=== PATIENT | male | born 1935 | race Caucasian/White ===

== ENCOUNTER → 2016-12-01 | Outpatient (CLI) | payer OTHER ==
[~2016-12-01] MED LIST: CHOLESTEROL MED; COUM4TAB PO; COUM6TAB PO; TAMS5CAP PO
[2016-12-01 09:36] LABS: BLOOD GAS BASE EXCESS -1.7 mmol/L (-2-2); BLOOD GAS CARBOXYHEMOGLOBIN 1.5 % (0-4); BLOOD GAS HCO3 22 mmol/L (22-26); BLOOD GAS O2 HGB SATURATION 94 % (90-100); BLOOD GAS OXYGEN CONTENT 18.9 Vol % (12.0-20.0); BLOOD GAS PCO2 35 mmHg (38-42); BLOOD GAS PO2 82 mmHg (61-120); BLOOD GAS TOTAL HGB 14.3 G/DL (12.0-16.0); CRITICAL VALUE NO; DRAW SITE RT RADIAL; FIO2 21 %; NUMBER OF ARTERIAL PUNCTURES 1; STAT NO; TEMP CORR TO 98.6; ULNAR PULSE PRESENT
--- NOTE | 2016-12-05 09:31 | RSPPFT ---
DATE OF PROCEDURE: 12/01/16 COMMENTS: Spirometry shows FVC of 3.4 at 81% of predicted, FEV1 of 1.5 at 58%, FEV1/FVC ratio is decreased. Flow is decreased at FEF 25, FEF 50, FEF 75 and FEF 25-75. There is no significant response after bronchodilator treatment. Lung volumes show residual volume is increased. TLC is increased. Diffusion capacity is severely decreased. Flow volume loop indicates an obstructive pattern. Room air arterial blood gases show pH of 7.42, PCO2 of 35, PO2 of 82, BiCarb of 22 and O2 Saturation at 94%. IMPRESSION: 1. Moderately severe obstructive lung disease. 2. No response after bronchodilator treatment. 3. Lung volumes show hyperinflation and air trapping. 4. Severe loss in diffusion capacity. 5. Blood gases show normal oxygenation on room air.
== END ==
LOC: HRSP 08:36
PROVIDERS: ATTEND Specialist
DX: J44.9 Chronic obstructive pulmonary disease, unspecified (principal)
CPT/HCPCS: 36600; 82805; 94060; 94726; 94729

== ENCOUNTER 2017-11-07 20:41 | Inpatient (IN) | payer OTHER, MEDICARE ==
[2017-11-07] VITALS (7 sets, daily range): BP systolic 130–147; BP diastolic 70–107; PULSE 102–112; RESP 24–30; TEMP 97.7–99.1; O2SAT 92–94
[~2017-11-07] VITALS: Ht 175.3 cm; Wt 88.6 kg
--- NOTE | 2017-11-07 20:55 | PD ---
HPI Chief Complaint: Respiratory Symptoms Time Seen by Provider: 20:46 Travel History International Travel<30 days: No Contact w/Intl Traveler<30days: No Traveled to known affect area: No History of Present Illness HPI 82-year-old male complaining of right-sided chest pain shortness of breath. Patient states that he fell 2 days ago. Patient states that he struck the right side of his head. Patient denies loss of consciousness. Patient denies any headache or neck pain. Patient denies any visual change. Patient complains of persistent sharp pain localized the right chest wall. Patient denies any pain radiation. Patient states that the pain is worse with deep breathing. Patient denies abdominal pain. Patient denies any focal weakness or numbness of the extremity. Patient denies any extremity injury. Patient has history of mitral valve replacement, on Coumadin. Patient has history of COPD. Patient has history hypertension. PFSH Past Medical History Hx Anticoagulant Therapy: Yes Cancer: Yes (skin CA removed) Cardiovascular Problems: Yes High Cholesterol: Yes Chemotherapy: No Congestive Heart Failure: Yes (AFIB) COPD: Yes Coronary Artery Disease: Yes Diabetes: No Diminished Hearing: Yes (HEARING AIDS) Endocrine: No Genitourinary: No Hypertension: Yes Immune Disorder: No Musculoskeletal: No Neurologic: No Psychiatric: No Reproductive: No Respiratory: Yes (COPD, EMPHYSEMA) Radiation Therapy: No Past Surgical History Abdominal Surgery: Yes (DOUBLE HERNIA) Cardiac Surgery: Yes (CABG, mitral valve) Coronary Artery Bypass Graft: Yes Other Surgery: Yes Social History Alcohol Use: Yes (1/NIGHT) Tobacco Use: No Substance Use: No Allergies-Medications (Allergen,Severity, Reaction): Coded Allergies: propoxyphene (Unverified Allergy, Unknown, HEADACHE,VOMITING, 02/21/17) Reported Meds & Prescriptions Reported Meds & Active Scripts Active Reported Turmeric (Turmeric (Curcuma Longa)) 450 Mg-50 Mg Cap Super B Complex (Vitamin B Complex Vit C No.4) 150 Mg Tablet Folic Acid 0.4 Mg Tab 400 Mcg PO DAILY D3-2000 (Cholecalciferol (Vitamin D3)) 2,000 Unit Capsule Move Free Agistics Ad (Nmsxgnmfuug-Spsowhcxmjz-Giwclx) 750 Mg-100 Mg-1.65 Mg -108 Mg Tab Proventil Hfa 6.7 GM Inh (Albuterol Sulfate) 90 Mcg/Act Aer 2 Puff INH Q4-6H PRN Spiriva Handihaler (Tiotropium Inh) 18 Mcg Cap 18 Mcg INH DAILY 1 capsule = 18 mcg Hydralazine HCl 25 Mg Tablet 25 Mg PO TID Lisinopril 40 Mg Tab 40 Mg PO DAILY Atorvastatin (Atorvastatin Calcium) 40 Mg Tab 40 Mg PO HS Warfarin 4 Mg Tab 4 Mg PO DAILY Allopurinol 100 Mg Tab 100 Mg PO DAILY Colchicine 0.6 Mg Cap 0.6 Mg PO BID Tamsulosin (Tamsulosin HCl) 0.4 Mg Cap 0.4 Mg HS Review of Systems General / Constitutional: No: Fever Eyes: No: Visual changes HENT: No: Headaches Cardiovascular: Positive: Chest Pain or Discomfort Respiratory: Positive: Shortness of Breath Gastrointestinal: No: Abdominal Pain Genitourinary: No: Dysuria Musculoskeletal: No: Pain Skin: No Rash Neurologic: No: Weakness Psychiatric: No: Depression Endocrine: No: Polydipsia Hematologic/Lymphatic: No: Easy Bruising Physical Exam Narrative GENERAL: Well-nourished, well-developed patient. SKIN: Focused skin assessment warm/dry. HEAD: Normocephalic. Patient has ecchymosis on the right temporoparietal area of the scalp. No active bleeding. EYES: No scleral icterus. No injection or drainage. Pupils 2 mm equal reactive. NECK: Supple, trachea midline. No JVD or lymphadenopathy. No tenderness on palpation of the neck. CARDIOVASCULAR: Regular rate and rhythm without murmurs, gallops, or rubs. RESPIRATORY: Breath sounds equal bilaterally. No accessory muscle use. Patient has moderate expiratory wheezes bilaterally. Few rhonchi at the bases. GASTROINTESTINAL: Abdomen soft, non-tender, nondistended. Mild tenderness on palpation right flank area. MUSCULOSKELETAL: No cyanosis, or edema. BACK: Nontender without obvious deformity. No CVA tenderness. Neurologic exam: Patient is awake and alert oriented 3. No obvious focal neurological deficit. Data Data Last Documented VS Vital Signs Date Time Temp Pulse Resp B/P (MAP) Pulse Ox O2 Delivery O2 Flow Rate FiO2 11/07/17 22:05 102 25 130/78 (95) 94 Nasal Cannula 2.00 11/07/17 21:00 99.1 Orders Orders Electrocardiogram (11/07/17 20:47) Complete Blood Count With Diff (11/07/17 20:47) Comprehensive Metabolic Panel (11/07/17 20:47) Creatine Kinase (Cpk) (11/07/17 20:47) Troponin I (11/07/17 20:47) B-Type Natriuretic Peptide (11/07/17 20:47) Prothrombin Time / Inr (Pt) (11/07/17 20:47) Act Partial Throm Time (Ptt) (11/07/17 20:47) Blood Culture (11/07/17 20:47) Urinalysis - C+S If Indicated (11/07/17 20:47) Influenzae A/B Antigen (11/07/17 20:47) Chest, Single Ap (11/07/17 20:47) Ct Brain W/O Iv Contrast(Rout) (11/07/17 20:47) Ct Abd/Pel W Iv Contrast(Rout) (11/07/17 20:47) Iv Access Insert/Monitor (11/07/17 20:47) Ecg Monitoring (11/07/17 20:47) Oximetry (11/07/17 20:47) Ct Thorax/ Chest W Iv Contrast (11/07/17 20:47) Sodium Chlor 0.9% 1000 Ml Inj (Ns 1000 M (11/07/17 21:00) Acetaminophen (Tylenol) (11/07/17 21:00) Albuterol-Ipratropium Neb (Duoneb Neb) (11/07/17 21:00) Lactic Acid (11/07/17 20:50) Ceftriaxone Inj (Rocephin Inj) (11/07/17 21:30) Azithromycin Inj (Zithromax Inj) (11/07/17 21:30) CKMB (11/07/17 20:51) CKMB% (11/07/17 20:51) Iohexol 350 Inj (Omnipaque 350 Inj) (11/07/17 22:12) Labs Laboratory Tests Test 11/07/17 20:51 11/07/17 21:05 White Blood Count 15.1 TH/MM3 Red Blood Count 5.31 MIL/MM3 Hemoglobin 14.3 GM/DL Hematocrit 42.9 % Mean Corpuscular Volume 80.7 FL Mean Corpuscular Hemoglobin 26.9 PG Mean Corpuscular Hemoglobin Concent 33.3 % Red Cell Distribution Width 14.5 % Platelet Count 239 TH/MM3 Mean Platelet Volume 12.0 FL Neutrophils (%) (Auto) 73.9 % Lymphocytes (%) (Auto) 13.3 % Monocytes (%) (Auto) 12.2 % Eosinophils (%) (Auto) 0.2 % Basophils (%) (Auto) 0.4 % Neutrophils # (Auto) 11.2 TH/MM3 Lymphocytes # (Auto) 2.0 TH/MM3 Monocytes # (Auto) 1.8 TH/MM3 Eosinophils # (Auto) 0.0 TH/MM3 Basophils # (Auto) 0.1 TH/MM3 CBC Comment DIFF FINAL Differential Comment Prothrombin Time 19.3 SEC Prothromb Time International Ratio 1.9 RATIO Activated Partial Thromboplast Time 33.0 SEC Blood Urea Nitrogen 21 MG/DL Creatinine 1.30 MG/DL Random Glucose 157 MG/DL Total Protein 7.9 GM/DL Albumin 3.4 GM/DL Calcium Level 9.1 MG/DL Alkaline Phosphatase 98 U/L Aspartate Amino Transf (AST/SGOT) 17 U/L Alanine Aminotransferase (ALT/SGPT) 20 U/L Total Bilirubin 1.0 MG/DL Sodium Level 138 MEQ/L Potassium Level 3.9 MEQ/L Chloride Level 105 MEQ/L Carbon Dioxide Level 24.5 MEQ/L Anion Gap 9 MEQ/L Estimat Glomerular Filtration Rate 53 ML/MIN Total Creatine Kinase 321 U/L Creatine Kinase MB 1.6 NG/ML Creatine Kinase MB % 0.5 % Troponin I LESS THAN 0.02 NG/ML Lactic Acid Level 2.3 mmol/L MDM Medical Decision Making Medical Screen Exam Complete: Yes Emergency Medical Condition: Yes Interpretation(s) 21:57 PM. Last Impressions Chest X-Ray 11/07/172046 Signed Impressions: Service Date/Time: Tuesday, November 07, 2017 20:51 - CONCLUSION: 1. COPD. 2. Bibasilar densities, likely scarring. 3. Status post CABG. Jose Rosado MD 21:57 PM. CBC WBC 15.1. 73 neutrophil. BUN 21. GFR 53. Lactic acid 2.3. Cardiac enzymes are normal. INR 1.9. 22:[address] chest shows a right eighth and ninth rib fracture. No hemopneumothorax. Differential Diagnosis Differential diagnosis including acute exacerbation COPD, pulmonary contusion, pneumohemothorax, rib fracture, head injury, abdominal injury. Narrative Course 82-year-old male with shortness of breath, history of COPD. Patient fell 2 days ago with persistent right chest wall pain. EMS was called. Patient was given albuterol with Atrovent unit dose treatment 2 and Solu-Medrol [address] to the ED. Albuterol with Atrovent continue treatment in the ED. Lidoderm patch. Morphine 1 mg IV. Zofran 4 mg IV. Normal saline solution 70 cc an hour. Diagnosis Primary Impression: COPD with acute exacerbation Additional Impression: Right rib fracture Qualified Codes: S22.41XA - Multiple fractures of ribs, right side, initial encounter for closed fracture Admitting Information Admitting Physician Requests: Admit Nick Mondragon MD November 07, 2017 20:55
[2017-11-07] MEDS ORDERED: ACETAMINOPHEN 325 MG TAB PO ONE (21:00)
[2017-11-07] MEDS ORDERED: SODIUM CHLOR 0.9% 1000 ML INJ 1,000 ML IV SCH (21:00)
[2017-11-07] MEDS ORDERED: RESP: ALBUTEROL 2.5 MG/IPRATROPIUM 0.5 MG NEB (SCH) INH ONE (21:00)
[2017-11-07 21:17] LABS: AUTOMATED NEUTROPHIL # 11.2 TH/MM3 (1.8-7.7); BASOPHIL # 0.1 TH/MM3 (0-0.2); BASOPHIL % 0.4 % (0.0-2.0); EOSINOPHIL % 0.2 % (0.0-4.0); HEMATOCRIT 42.9 % (39.0-51.0); HEMOGLOBIN 14.3 GM/DL (13.0-17.0); LYMPH % 13.3 % (9.0-44.0); MEAN CELL VOLUME 80.7 FL (80.0-100.0); MEAN CORPUSCULAR HEMOGLOBIN 26.9 PG (27.0-34.0); MEAN CORPUSCULAR HGB CONC 33.3 % (32.0-36.0); MONO % 12.2 % (0.0-8.0); MONOCYTE # 1.8 TH/MM3 (0-0.9); NEUT % 73.9 % (16.0-70.0); PLATELET COUNT 239 TH/MM3 (150-450); RED BLOOD COUNT 5.31 MIL/MM3 (4.50-5.90); RED CELL DISTRIBUTION WIDTH 14.5 % (11.6-17.2); WHITE BLOOD COUNT 15.1 TH/MM3 (4.0-11.0)
--- NOTE | 2017-11-07 21:19 | RADRPT ---
EXAM DATE/TIME: 11/07/2017 20:51 [facility] COMPARISON: CHEST SINGLE AP, March 20, 2016, 13:37. INDICATIONS : Shortness of breath MEDICAL HISTORY : Chronic obstructive pulmonary disease SURGICAL HISTORY : CABG. ENCOUNTER: Initial ACUITY: 1 day PAIN SCORE: 5/10 LOCATION: Right chest FINDINGS: A single view of the chest demonstrates hyperaeration. Bibasilar densities. Status post CABG. Osseou s structures are intact. CONCLUSION: 1. COPD. 2. Bibasilar densities, likely scarring. 3. Status post CABG. Jose Rosado MD on November 07, 2017 at 21:14 Board Certified Radiologist. This report was verified electronically.
[2017-11-07] MEDS ORDERED: cefTRIAXone INJ 1,000 MG in SODIUM CHLORIDE 0.9% INJ 100 ML IV ONE (21:30)
[2017-11-07] MEDS ORDERED: AZITHROMYCIN INJ 500 MG in SODIUM CHLOR 0.9% 250 ML INJ 250 ML IV ONE (21:30)
[2017-11-07 21:33] LABS: CHLORIDE 105 MEQ/L (98-107); SODIUM (NA) 138 MEQ/L (136-145)
[2017-11-07 21:36] LABS: ALBUMIN 3.4 GM/DL (3.4-5.0); CALCIUM 9.1 MG/DL (8.5-10.1)
[2017-11-07 21:37] LABS: BICARBONATE 24.5 MEQ/L (21.0-32.0); BLOOD UREA NITROGEN 21 MG/DL (7-18); GLUCOSE,RANDOM 157 MG/DL (74-106)
[2017-11-07 21:39] LABS: INTERNATIONAL NORMALIZED RATIO 1.9 RATIO; PROTHROMBIN TIME - PATIENT 19.3 SEC (9.8-11.6)
[2017-11-07] MEDS ORDERED: ALLO100T PO (21:39)
[2017-11-07] MEDS ORDERED: SPIRCAP INH (21:39)
[2017-11-07] MEDS ORDERED: TURM500C3 (21:39)
[2017-11-07] MEDS ORDERED: TAMS0.4C4 (21:39)
[2017-11-07] MEDS ORDERED: FOLI400T PO (21:39)
[2017-11-07] MEDS ORDERED: COLC1CAP3 PO (21:39)
[2017-11-07] MEDS ORDERED: ATOR40TA16 PO (21:39)
[2017-11-07] MEDS ORDERED: HYDR-3799 PO (21:39)
[2017-11-07] MEDS ORDERED: [UNRECOGNIZED DRUG - CODE] (21:39)
[2017-11-07] MEDS ORDERED: ALBU6.7H INH (21:39)
[2017-11-07] MEDS ORDERED: WARF-20 PO (21:39)
[2017-11-07] MEDS ORDERED: VITA150T (21:39)
[2017-11-07] MEDS ORDERED: GLUC1TAB24 (21:39)
[2017-11-07] MEDS ORDERED: LISI40TA PO (21:39)
[2017-11-07 21:40] LABS: ALT (GPT) 20 U/L (12-78); AST (GOT) 17 U/L (15-37); GLOMERULAR FILTRATION RATE 53 ML/MIN (>89)
[2017-11-07 21:41] LABS: TOTAL PROTEIN 7.9 GM/DL (6.4-8.2)
[2017-11-07 21:43] LABS: ALKALINE PHOSPHATASE 98 U/L (45-117)
[2017-11-07 21:45] LABS: TROPONIN I LESS THAN 0.02 NG/ML (0.02-0.05)
--- NOTE | 2017-11-07 22:10 | RADRPT ---
EXAM DATE/TIME: 11/07/2017 21:52 [facility] COMPARISON: CT BRAIN W/O CONTRAST, June 26, 2016, 17:39. INDICATIONS : Trauma, fall. RADIATION DOSE: 54.44 CTDIvol (mGy) MEDICAL HISTORY : Congestive hearrt failure. Chronic obstructive pulmonary disease. SURGICAL HISTORY : None. ENCOUNTER: Initial ACUITY: 2 days PAIN SCALE: 8/10 LOCATION: cranial TECHNIQUE: Multiple contiguous axial images were obtained of the head. Using automated exposure control and adj ustment of the mA and/or kV according to patient size, radiation dose was kept as low as reasonably a chievable to obtain optimal diagnostic quality images. DICOM format image data is available electro nically for review and comparison. FINDINGS: CEREBRUM: The ventricles are normal for age. There is low-density in the white matter again seen. Slight calcif ication left basal ganglia. No evidence of midline shift, mass lesion, hemorrhage or acute infarction . No extra-axial fluid collections are seen. POSTERIOR FOSSA: The cerebellum and brainstem are intact. The 4th ventricle is midline. The cerebellopontine angle i s unremarkable. EXTRACRANIAL: The visualized portion of the orbits is intact. SKULL: The calvaria is intact. No evidence of skull fracture. CONCLUSION: 1. Minimal nonspecific white matter changes. 2. No acute intracranial abnormality. Jose Rosado MD on November 07, 2017 at 22:07 Board Certified Radiologist. This report was verified electronically.
[2017-11-07] MEDS ORDERED: IOHEXOL 350 MG/ML 10 ML VIAL (for RAD DIAG) IVCONTRAST ONE (22:12)
--- NOTE | 2017-11-07 22:25 | RADRPT ---
EXAM DATE/TIME: 11/07/2017 21:57 [facility] COMPARISON: No previous studies available for comparison. INDICATIONS : Trauma, fall. IV CONTRAST: 100 cc Omnipaque 350 (iohexol) IV ; Cumulative dose for multiple exams. ORAL CONTRAST: No oral contrast ingested. RADIATION DOSE: 17.25 CTDIvol (mGy) ; Combined studies - Thorax/Abdomen/Pelvis MEDICAL HISTORY : Chronic obstructive pulmonary disease. Colonic polyps. SURGICAL HISTORY : Inguinal hernia repair. CABG ENCOUNTER: Initial ACUITY: 2 days PAIN SCALE: 8/10 LOCATION: abdomen TECHNIQUE: Volumetric scanning of the abdomen and pelvis was performed. Using automated exposure control and ad justment of the mA and/or kV according to patient size, radiation dose was kept as low as reasonably achievable to obtain optimal diagnostic quality images. DICOM format image data is available electro nically for review and comparison. FINDINGS: LOWER LUNGS: Minimal bibasilar densities. LIVER: Homogeneous density without lesion. There is no dilation of the biliary tree. No calcified gallston es. SPLEEN: Normal size without lesion. PANCREAS: Atrophic. KIDNEYS: Normal in size and shape. There is no mass, stone or hydronephrosis. Multiple renal cysts are seen b ilaterally more numerous on the right. ADRENAL GLANDS: Right gland within normal limits. Left adrenal nodule measures 16 mm. In VASCULAR: There is no aortic aneurysm. BOWEL/MESENTERY: Diverticulosis coli without diverticulitis. There is no free intraperitoneal air or fluid. ABDOMINAL WALL: Within normal limits. RETROPERITONEUM: There is no lymphadenopathy. BLADDER: No wall thickening or mass. REPRODUCTIVE: Within normal limits. INGUINAL: There is no lymphadenopathy or hernia. MUSCULOSKELETAL: Scolio and degenerative changes thoracolumbar spine. CONCLUSION: 1. Diverticulosis without diverticulitis. 2. Bilateral renal cysts. 3. Left adrenal nodule, likely benign. Jose Rosado MD on November 07, 2017 at 22:21 Board Certified Radiologist. This report was verified electronically.
--- NOTE | 2017-11-07 22:28 | RADRPT ---
EXAM DATE/TIME: 11/07/2017 21:57 [facility] COMPARISON: CT THORAX W/O CONTRAST, March 08, 2016, 16:20. INDICATIONS : Trauma, fall. Rib pain. IV CONTRAST: 100 cc Omnipaque 350 (iohexol) IV ; Cumulative dose for multiple exams. RADIATION DOSE: 17.25 CTDIvol (mGy) ; Combined studies - Thorax/Abdomen/Pelvis MEDICAL HISTORY : Chronic obstructive pulmonary disease. Congestive heart failure. SURGICAL HISTORY : CABG Inguinal hernia repair. ENCOUNTER: Initial ACUITY: 2 days PAIN SCALE: 8/10 LOCATION: ribs TECHNIQUE: Volumetric scanning of the chest was performed. Using automated exposure control and adjustment of t he mA and/or kV according to patient size, radiation dose was kept as low as reasonably achievable to obtain optimal diagnostic quality images. DICOM format image data is available electronically for review and comparison. Follow-up recommendations for detected pulmonary nodules are based at a minimum on nodule size and pa tient risk factors according to Fleischner Society Guidelines. FINDINGS: LUNGS: There is minimal consolidative changes left lower lobe and superior segment right lower lobe. 6 mm no dule right lower lobe. Bullous emphysema. PLEURA: There is no pleural thickening or pleural effusion. MEDIASTINUM: The heart and great vessels demonstrate no acute abnormality. There is no mediastinal or hilar lymph adenopathy. AXILLAE: Within normal limits. No lymphadenopathy. SKELETAL: Within normal limits for patient age. MISCELLANEOUS: Right 8 and ninth rib fractures. CONCLUSION: 1. Right eighth and ninth rib fractures. No pneumothorax 2. Bibasilar densities likely atelectasis. 3. Severe emphysema. Jose Rosado MD on November 07, 2017 at 22:23 Board Certified Radiologist. This report was verified electronically.
[2017-11-07] MEDS ORDERED: ONDANSETRON HCL 4 MG/2 ML VIAL IV PUSH ONE (22:45)
[2017-11-07] MEDS ORDERED: MORPHINE SULFATE 2 MG/ML SYRINGE IV PUSH ONE (22:45)
[2017-11-07] MEDS: SODIUM CHLOR 0.9% 1000 ML INJ 1,000 ML IV SCH (22:45)
[2017-11-07] MEDS ORDERED: LIDOCAINE HCL 5% PATCH T-DERMAL ONE (22:45)
[2017-11-07] MEDS ORDERED: SODIUM CHLORIDE 0.9% FLUSH 10 ML FLUSH IV FLUSH PRN (23:15)
[2017-11-07] MEDS ORDERED: RESP: ALBUTEROL 2.5 MG/3 ML NEB (PRN) INH (23:15)
[2017-11-07] MEDS ORDERED: MORPHINE SULFATE 4 MG/ML INJ IV ONE (23:15)
[2017-11-07 23:24] LABS: BLOOD, URINE NEG (NEG); GLUCOSE,URINE NEG (NEG); KETONE, URINE TRACE mg/dL (NEG); NITRITE,URINE NEG (NEG); PH, URINE 5.5 (5.0-8.5); URINE COLOR YELLOW (YELLW/STRAW); URINE LEUKOCYTE ESTERASE NEG (NEG)
[2017-11-07] MEDS: RESP: ALBUTEROL 2.5 MG/IPRATROPIUM 0.5 MG NEB (SCH) INH (23:32)
[2017-11-08] VITALS (9 sets, daily range): BP systolic 118–139; BP diastolic 59–86; PULSE 83–95; RESP 20; TEMP 96–98.9; O2SAT 92–97
[2017-11-08] MEDS: methylPREDNISolone SOD SUCC 125 MG/2 ML VIAL IV PUSH SCH ×5 (00:30→23:17)
[2017-11-08 00:31] LABS: BILIRUBIN, URINE NEG (NEG)
[2017-11-08 00:41] LABS: MUCUS URINE FEW /lpf (OCC)
[2017-11-08 00:42] LABS: RBC, URINE 0-3 /hpf (0-3); SQUAMOUS EPITHELIAL CELL URINE 0-5 /hpf (0-5)
[2017-11-08] MEDS: SODIUM CHLOR 0.9% 1000 ML INJ 1,000 ML IV SCH ×2 (01:00→10:07)
[2017-11-08] MEDS ORDERED: MORPHINE SULFATE 4 MG/ML INJ IV PRN ×2 (01:15→13:15)
[2017-11-08] MEDS: RESP: ALBUTEROL 2.5 MG/IPRATROPIUM 0.5 MG NEB (SCH) INH ×4 (03:26→20:00)
[2017-11-08 06:33] LABS: AUTOMATED NEUTROPHIL # 9.4 TH/MM3 (1.8-7.7); BASOPHIL % 0.4 % (0.0-2.0); EOSINOPHIL % 0.1 % (0.0-4.0); HEMATOCRIT 37.8 % (39.0-51.0); HEMOGLOBIN 12.4 GM/DL (13.0-17.0); LYMPH % 6.2 % (9.0-44.0); LYMPHOCYTE # 0.6 TH/MM3 (1.0-4.8); MEAN CELL VOLUME 80.9 FL (80.0-100.0); MEAN CORPUSCULAR HEMOGLOBIN 26.6 PG (27.0-34.0); MEAN CORPUSCULAR HGB CONC 32.9 % (32.0-36.0); MEAN PLATELET VOLUME 10.6 FL (7.0-11.0); MONO % 3.2 % (0.0-8.0); MONOCYTE # 0.3 TH/MM3 (0-0.9); NEUT % 90.1 % (16.0-70.0); PLATELET COUNT 161 TH/MM3 (150-450); RED BLOOD COUNT 4.68 MIL/MM3 (4.50-5.90); RED CELL DISTRIBUTION WIDTH 14.2 % (11.6-17.2); WHITE BLOOD COUNT 10.3 TH/MM3 (4.0-11.0)
[2017-11-08 06:51] LABS: CALCIUM 8.2 MG/DL (8.5-10.1); CREATININE 1.3 MG/DL (0.60-1.30)
[2017-11-08] MEDS: hydrALAZINE HCL 25 MG TAB PO SCH ×3 (08:44→17:00)
[2017-11-08] MEDS: LISINOPRIL 20 MG TAB PO SCH (08:45)
[2017-11-08] MEDS: SODIUM CHLORIDE 0.9% FLUSH 10 ML FLUSH IV FLUSH SCH ×2 (08:47→20:56)
[2017-11-08] MEDS: TIOTROPIUM BROMIDE 18 MCG INH INH SCH (08:47)
[2017-11-08] MEDS: KETOROLAC TROMETHAMINE 30 MG/ML (IVP) VIAL IV PUSH SCH ×3 (12:23→23:19)
[2017-11-08] MEDS ORDERED: BACITRACIN OINT 0.9 GM PKT TOPICAL ONE (14:00)
--- NOTE | 2017-11-08 14:09 | HHI.HP ---
[facility] Tyler Carter M.D. Admission Diagnosis Acute exacerbation COPD. Fractured ribs. Diagnoses: Chief Complaint: Fall at home Travel History International Travel<30 Days: No Contact w/Intl Traveler <30 Da: No Traveled to Known Affected Are: No History of Present Illness This patient is an 82-year-old gentleman with a history of COPD who tripped and fell holding a heavy object and sustained some rib fractures with contusion and laceration of the right hand. Patient says he was increasingly short of breath over the last 2 days following the fall and his finally brought him in because he really was having a lot of trouble breathing. He notes no fevers or chills. He does have COPD and this has been managed with Spiriva and albuterol handheld inhaler. Patient's chest x-ray and CT were done and did show acute right ninth eighth eighth and ninth rib fractures. Patient been admitted to the hospital also because of elevated lactic acid and hypoxemia requiring O2 therapy. Patient has felt better with Toradol and use of incentive spirometry is explained at the bedside. Patient will continue to be admitted to the hospital for further improvement. Review of Systems Constitutional: DENIES: Diaphoretic episodes, Fatigue, Fever, Weight gain, Weight loss, Chills, Dizziness, Change in appetite, Night Sweats Endocrine: DENIES: Heat/cold intolerance, Polydipsia, Polyuria, Polyphagia Eyes: DENIES: Blurred vision, Diplopia, Eye inflammation, Eye pain, Vision loss , Photosensitivity, Double Vision Ears, nose, mouth, throat: DENIES: Tinnitus, Hearing loss, Vertigo, Nasal discharge, Oral lesions, Throat pain, Hoarseness, Ear Pain, Running Nose, Epistaxis, Sinus Pain, Toothache, Odynophagia Respiratory: COMPLAINS OF: Cough, Sputum production, Shortness of breath, DENIES: Apneas, Snoring, Wheezing, Hemoptysis Cardiovascular: DENIES: Chest pain, Palpitations, Syncope, Dyspnea on Exertion , PND, Lower Extremity Edema, Orthopnea, Claudication Gastrointestinal: DENIES: Abdominal pain, Black stools, Bloody stools, Constipation, Diarrhea, Nausea, Vomiting, Difficulty Swallowing, Anorexia Genitourinary: DENIES: Sexual dysfunction, Urinary frequency, Urinary incontinence, Urgency, Hematuria, Dysuria, Nocturia, Penile Discharge, Testicular Pain, Testicular Swelling Musculoskeletal: COMPLAINS OF: Joint pain, DENIES: Muscle aches, Stiffness, Joint Swelling, Back pain, Neck pain Integumentary: DENIES: Abnormal pigmentation, Nail changes, Pruritus, Rash Hematologic/lymphatic: DENIES: Bruising, Lymphadenopathy Immunologic/allergic: DENIES: Eczema, Urticaria Neurologic: DENIES: Abnormal gait, Headache, Localized weakness, Paresthesias, Seizures, Speech Problems, Tremor, Poor Balance Psychiatric: DENIES: Anxiety, Confusion, Mood changes, Depression, Hallucinations, Agitation, Suicidal Ideation, Homicidal Ideation, Delusions Except as stated in HPI: all other systems reviewed are Neg Past Family Social History Past Medical History Coronary artery disease History of gout Hypertension COPD Benign prostatic hyperplasia Past Surgical History Reviewed in the EMR to include double hernia in 1992, mitral valve repair and cardiac bypass and graft Reported Medications Reviewed in the EMR, nothing new Allergies: Coded Allergies: propoxyphene (Unverified Allergy, Unknown, HEADACHE,VOMITING, 02/21/17) Active Ordered Medications Reviewed in the EMR Family History Coronary disease and hypertension Social History No current tobacco, liquor nightly without any history of dependence per patient and spouse Physical Exam Vital Signs Vital Signs Date Time Temp Pulse Resp B/P (MAP) Pulse Ox O2 Delivery O2 Flow Rate FiO2 11/08/17 12:00 98.9 84 20 133/69 (90) 96 11/08/17 08:00 97.8 91 20 139/68 (91) 93 11/08/17 07:36 96 Nasal Cannula 3.50 11/08/17 04:00 97.9 86 20 119/71 (87) 95 11/08/17 01:05 84 11/08/17 01:00 96.2 95 20 131/59 (83) 94 11/08/17 01:00 97.8 88 18 125/68 (87) 94 Nasal Cannula 4.00 11/08/17 00:31 97.5 95 20 135/69 (91) 94 Nasal Cannula 2.00 11/08/17 00:31 97.5 95 20 132/86 (101) 95 Nasal Cannula 2.00 11/07/17 23:32 93 Nasal Cannula 3.50 11/07/17 22:56 97.7 105 24 130/70 (90) 94 Nasal Cannula 2.00 11/07/17 22:05 102 25 130/78 (95) 94 Nasal Cannula 2.00 11/07/17 21:00 99.1 112 30 138/88 (105) 94 Nasal Cannula 2.00 11/07/17 20:58 93 Nasal Cannula 3.00 11/07/17 20:54 93 Room Air 2.00 11/07/17 20:51 93 Nasal Cannula 2.00 11/07/17 20:47 99.1 112 30 147/107 (120) 92 Physical Exam GENERAL: This is a well-nourished, well-developed patient, short of breath with minimal exertion, pursed lip breathing SKIN: Left hand laceration and ecchymosis HEAD: Atraumatic. Normocephalic. No temporal or scalp tenderness. EYES: Pupils equal round and reactive. Extraocular motions intact. No scleral icterus. No injection or drainage. ENT: Nose without bleeding, purulent drainage or septal hematoma. Throat without erythema, tonsillar hypertrophy or exudate. Uvula midline. Airway patent. NECK: Trachea midline. No JVD or lymphadenopathy. Supple, nontender, no meningeal signs. CARDIOVASCULAR: Regular rate and rhythm without murmurs, gallops, or rubs. RESPIRATORY: Decreased breath sounds bilaterally due to poor effort, scattered wheezes GASTROINTESTINAL: Abdomen soft, non-tender, nondistended. No hepato-splenomegaly , or palpable masses. No guarding. MUSCULOSKELETAL: Extremities without clubbing, cyanosis, or edema. No joint tenderness, effusion, or edema noted. No calf tenderness. Negative Homans sign bilaterally. NEUROLOGICAL: Awake and alert. Cranial nerves II through XII intact. Motor and sensory grossly within normal limits. Five out of 5 muscle strength in all muscle groups. Normal speech. Laboratory Laboratory Tests Test 11/07/17 20:51 11/07/17 21:05 11/07/17 23:05 11/08/17 05:25 White Blood Count 15.1 10.3 Red Blood Count 5.31 4.68 Hemoglobin 14.3 12.4 Hematocrit 42.9 37.8 Mean Corpuscular Volume 80.7 80.9 Mean Corpuscular Hemoglobin 26.9 26.6 Mean Corpuscular Hemoglobin Concent 33.3 32.9 Red Cell Distribution Width 14.5 14.2 Platelet Count 239 161 Mean Platelet Volume 12.0 10.6 Neutrophils (%) (Auto) 73.9 90.1 Lymphocytes (%) (Auto) 13.3 6.2 Monocytes (%) (Auto) 12.2 3.2 Eosinophils (%) (Auto) 0.2 0.1 Basophils (%) (Auto) 0.4 0.4 Neutrophils # (Auto) 11.2 9.4 Lymphocytes # (Auto) 2.0 0.6 Monocytes # (Auto) 1.8 0.3 Eosinophils # (Auto) 0.0 0.0 Basophils # (Auto) 0.1 0.0 CBC Comment DIFF FINAL AUTO DIFF Differential Comment AUTO DIFF CONFIRMED Prothrombin Time 19.3 Prothromb Time International Ratio 1.9 Activated Partial Thromboplast Time 33.0 Blood Urea Nitrogen 21 23 Creatinine 1.30 1.30 Random Glucose 157 227 Total Protein 7.9 Albumin 3.4 Calcium Level 9.1 8.2 Alkaline Phosphatase 98 Aspartate Amino Transf (AST/SGOT) 17 Alanine Aminotransferase (ALT/SGPT) 20 Total Bilirubin 1.0 Sodium Level 138 140 Potassium Level 3.9 3.7 Chloride Level 105 107 Carbon Dioxide Level 24.5 23.0 Anion Gap 9 10 Estimat Glomerular Filtration Rate 53 53 Total Creatine Kinase 321 Creatine Kinase MB 1.6 Creatine Kinase MB % 0.5 Troponin I LESS THAN 0.02 B-Type Natriuretic Peptide 85 Lactic Acid Level 2.3 Urine Color YELLOW Urine Turbidity CLEAR Urine pH 5.5 Urine Specific Hickman 1.025 Urine Protein 100 Urine Glucose (UA) NEG Urine Ketones TRACE Urine Occult Blood NEG Urine Nitrite NEG Urine Bilirubin NEG Urine Urobilinogen 0.2 Urine Leukocyte Esterase NEG Urine RBC 0-3 Urine WBC 3-5 Urine Squamous Epithelial Cells 0-5 Urine Mucus FEW Microscopic Urinalysis Comment CULT NOT INDICATED Date/Time Source Procedure Growth Status 11/07/17 21:05 Blood Peripheral Aerobic Blood Culture - Preliminary NO GROWTH IN 1 DAY Resulted 11/07/17 21:05 Blood Peripheral Anaerobic Blood Culture - Preliminary NO GROWTH IN 1 DAY Resulted 11/07/17 21:05 Nasal Washing Influenza Types A,B Antigen (TEMI) - Final NEGATIVE FOR FLU A AND B ANTIGEN.... Complete Result Diagram: 11/08/1752411/08/17 0525 Imaging Last Impressions Head CT 11/07/172046 Signed Impressions: Service Date/Time: Tuesday, November 07, 2017 21:52 - CONCLUSION: 1. Minimal nonspecific white matter changes. 2. No acute intracranial abnormality. Jose Rosado MD Chest X-Ray 11/07/172046 Signed Impressions: Service Date/Time: Tuesday, November 07, 2017 20:51 - CONCLUSION: 1. COPD. 2. Bibasilar densities, likely scarring. 3. Status post CABG. Jose Rosado MD Chest CT 11/07/172046 Signed Impressions: Service Date/Time: Tuesday, November 07, 2017 21:57 - CONCLUSION: 1. Right eighth and ninth rib fractures. No pneumothorax 2. Bibasilar densities likely atelectasis. 3. Severe emphysema. Jose Rosado MD Abdomen/Pelvis CT 11/07/172046 Signed Impressions: Service Date/Time: Tuesday, November 07, 2017 21:57 - CONCLUSION: 1. Diverticulosis without diverticulitis. 2. Bilateral renal cysts. 3. Left adrenal nodule, likely benign. Jose Rosado MD Septic Shock Reassessment Septic shock perfusion: reassessment completed Caprini VTE Risk Assessment Caprini VTE Risk Assessment: No/Low Risk (score <= 1) Caprini Risk Assessment Model Point Value = 1 Point Value = 2 Point Value = 3 Point Value = 5 Age 41-60 Minor surgery BMI > 25 kg/m2 Swollen legs Varicose veins or History of unexplained or recurrent spontaneous Oral contraceptives or hormone replacement Sepsis (< 1 month) Serious lung disease, including pneumonia (< 1 month) Abnormal pulmonary function Acute myocardial infarction Congestive heart failure (< 1 month) History of inflammatory bowel disease Medical patient at bed rest Age 61-74 Arthroscopic surgery Major open surgery (> 45 min) Laparoscopic surgery (> 45 min) Malignancy Confined to bed (> 72 hours) Immobilizing plaster cast Central venous access Age >= 75 History of VTE Family history of VTE Factor V Leiden Prothrombin [id number] Lupus anticoagulant Anticardiolipin antibodies Elevated serum homocysteine Heparin-induced thrombocytopenia Other congenital or acquired thrombophilia Stroke (< 1 month) Elective arthroplasty Hip, pelvis, or leg fracture Acute spinal cord injury (< 1 month) Prophylaxis Regimen Total Risk Factor Score Risk Level Prophylaxis Regimen 0-1 Low Early ambulation 2 Moderate Order ONE of the following: *Sequential Compression Device (SCD) *Heparin 5000 units SQ BID 3-4 Higher Order ONE of the following medications: *Heparin 5000 units SQ TID *Enoxaparin/Lovenox 40 mg SQ daily (WT < 150 kg, CrCl > 30 mL/min) *Enoxaparin/Lovenox 30 mg SQ daily (WT < 150 kg, CrCl > 10-29 mL/min) *Enoxaparin/Lovenox 30 mg SQ BID (WT < 150 kg, CrCl > 30 mL/min) AND/OR *Sequential Compression Device (SCD) 5 or more Highest Order ONE of the following medications: *Heparin 5000 units SQ TID (Preferred with Epidurals) *Enoxaparin/Lovenox 40 mg SQ daily (WT < 150 kg, CrCl > 30 mL/min) *Enoxaparin/Lovenox 30 mg SQ daily (WT < 150 kg, CrCl > 10-29 mL/min) *Enoxaparin/Lovenox 30 mg SQ BID (WT < 150 kg, CrCl > 30 mL/min) AND *Sequential Compression Device (SCD) Assessment and Plan Problem List: (1) Right rib fracture ICD Code: S22.31XA - Fracture of one rib, right side, initial encounter for closed fracture Status: Acute Plan: Continue with pulmonary toilet Anti-inflammatory medicines Continue follow clinically (2) COPD with acute exacerbation ICD Code: J44.1 - Chronic obstructive pulmonary disease with (acute) exacerbation Status: Acute Plan: Continue bronchodilators by nebulizer IV steroids to taper Doxycycline (3) Hypertension ICD Code: I10 - Essential (primary) hypertension Status: Chronic Plan: Currently controlled on home meds (4) H/O mitral valve replacement ICD Code: Z95.2 - Presence of prosthetic heart valve Status: Acute Plan: Continue Coumadin therapy, follow-up INR which is therapeutic at this time Assessment and Plan Continue medications for coronary artery disease (lisinopril, atorvastatin) Code Status Full code Discussed Condition With patient, spouse Physician Certification 2 Midnight Certification Type: Admission for Inpatient Services Order for Inpatient Services The services are ordered in accordance with Medicare regulations or non- Medicare payer requirements, as applicable. In the case of services not specified as inpatient-only, they are appropriately provided as inpatient services in accordance with the 2-midnight benchmark. Estimated LOS (days): 2 2 days is the estimated time the patient will need to remain in the hospital, assuming treatment plan goals are met and no additional complications. Post-Hospital Plan: Home Problem Qualifiers (1) Right rib fracture: Qualified Codes: S22.41XA - Multiple fractures of ribs, right side, initial encounter for closed fracture Rachel Nunes MD November 08, 2017 14:09
[2017-11-08] MEDS: DOXYCYCLINE HYCLATE 100 MG TAB PO SCH ×2 (14:42→20:55)
--- NOTE | 2017-11-08 15:36 | EKG ---
Date Performed: 11/07/2017 Time Performed: 20:52:23 PTAGE: 82 years EKG: ATRIAL FIBRILLATION WITH RAPID VENTRICULAR RESPONSE INTRAVENTRICULAR CONDUCTION DELAY ABNOR MAL ECG PREVIOUS TRACING : 11/07/2017 20.51 PVCs vs. aberrant conduction. Since the prior tracing, the patient has developed a rapid ventricular response to the atrial fibrillation. There is now some mini mal ST segment elevation inferiorly, and inferior wall ischemia or injury cannot be entirely excluded , but the serial changes are somewhat nonspecific. Clinical correlation advised. DOCTOR: Abida Ernandez Interpretating Date/Time 11/08/2017 15:34:27
[2017-11-08] MEDS: WARFARIN SOD 4 MG TAB PO SCH (16:52)
[2017-11-08] MEDS: ATORVASTATIN 40 MG TAB PO SCH (20:56)
[2017-11-08] MEDS: TAMSULOSIN HCL 0.4 MG CAP PO SCH (20:56)
[2017-11-08] MEDS ORDERED: ALUMINUM/MAGNESIUM/SIMETH 30 ML CUP PO ONE (21:45)
[2017-11-09] VITALS (7 sets, daily range): BP systolic 120–153; BP diastolic 59–76; PULSE 73–85; RESP 16–26; TEMP 97.2–97.7; O2SAT 93–95
[2017-11-09] MEDS: methylPREDNISolone SOD SUCC 125 MG/2 ML VIAL IV PUSH SCH ×3 (05:49→17:08)
[2017-11-09] MEDS: KETOROLAC TROMETHAMINE 30 MG/ML (IVP) VIAL IV PUSH SCH ×3 (05:51→17:09)
[2017-11-09 06:52] LABS: INTERNATIONAL NORMALIZED RATIO 2.1 RATIO; PROTHROMBIN TIME - PATIENT 21.3 SEC (9.8-11.6)
[2017-11-09] MEDS: RESP: ALBUTEROL 2.5 MG/IPRATROPIUM 0.5 MG NEB (SCH) INH ×3 (07:38→19:44)
[2017-11-09] MEDS: DOXYCYCLINE HYCLATE 100 MG TAB PO SCH (08:51)
[2017-11-09] MEDS: hydrALAZINE HCL 25 MG TAB PO SCH ×3 (08:51→17:08)
[2017-11-09] MEDS: TIOTROPIUM BROMIDE 18 MCG INH INH SCH (08:52)
[2017-11-09] MEDS: LISINOPRIL 20 MG TAB PO SCH (08:52)
[2017-11-09] MEDS: SODIUM CHLORIDE 0.9% FLUSH 10 ML FLUSH IV FLUSH SCH ×2 (08:54→21:09)
[2017-11-09] MEDS ORDERED: VANCOMYCIN INJ 1,250 MG in SODIUM CHLOR 0.9% 250 ML INJ 250 ML IV SCH (09:30)
[2017-11-09] MEDS ORDERED: Vancomycin Consult Pharmacy 1 EA OTHER SCH (10:00)
[2017-11-09] MEDS: cefTRIAXone INJ 1,000 MG in SODIUM CHLORIDE 0.9% INJ 100 ML IV SCH (11:29)
--- NOTE | 2017-11-09 12:23 | HHI.PR ---
Subjective Remarks Patient seen today in follow-up for sepsis with evidence of COPD and pneumonia. She also with bacteremia. Leukocytosis improved. Patient feels a lot better today Objective Vitals Vital Signs Date Time Temp Pulse Resp B/P (MAP) Pulse Ox O2 Delivery O2 Flow Rate FiO2 11/09/17 12:00 97.6 73 24 120/60 (80) 93 11/09/17 08:00 97.5 79 26 153/76 (101) 94 11/09/17 07:40 95 Nasal Cannula 2.00 11/09/17 00:00 97.6 81 20 126/62 (83) 93 11/08/17 20:00 93 Nasal Cannula 2.00 11/08/17 20:00 96.0 83 20 118/61 (80) 92 11/08/17 17:30 97.9 84 20 123/81 (95) 97 I/O 11/08/17 11/08/17 11/08/17 11/09/17 11/09/17 11/09/17 07:00 15:00 23:00 07:00 15:00 23:00 Intake Total 370 ml 200 ml Output Total 150 ml 400 ml 300 ml Balance 220 ml -400 ml -100 ml Intake Oral 120 ml 200 ml IV Total 250 ml Output Urine Total 150 ml 400 ml 300 ml # Voids 1 3 # Bowel Movements 0 1 Result Diagram: 11/08/17 0525 11/08/17 05 Imaging Last Impressions Head CT 11/07/172046 Signed Impressions: Service Date/Time: Tuesday, November 07, 2017 21:52 - CONCLUSION: 1. Minimal nonspecific white matter changes. 2. No acute intracranial abnormality. Jose oRsado MD Chest X-Ray 11/07/172046 Signed Impressions: Service Date/Time: Tuesday, November 07, 2017 20:51 - CONCLUSION: 1. COPD. 2. Bibasilar densities, likely scarring. 3. Status post CABG. Jose Rosado MD Chest CT 11/07/172046 Signed Impressions: Service Date/Time: Tuesday, November 07, 2017 21:57 - CONCLUSION: 1. Right eighth and ninth rib fractures. No pneumothorax 2. Bibasilar densities likely atelectasis. 3. Severe emphysema. Jose Rosado MD Abdomen/Pelvis CT 11/07/172046 Signed Impressions: Service Date/Time: Tuesday, November 07, 2017 21:57 - CONCLUSION: 1. Diverticulosis without diverticulitis. 2. Bilateral renal cysts. 3. Left adrenal nodule, likely benign. Jose Rosado MD Objective Remarks GENERAL: This is a well-nourished, well-developed patient, in no apparent distress. CARDIOVASCULAR: Regular rate and rhythm without murmurs, gallops, or rubs. RESPIRATORY: Clear to auscultation. Breath sounds equal bilaterally. No wheezes , rales, or rhonchi. GASTROINTESTINAL: Abdomen soft, non-tender, nondistended. Normal active bowel sounds MUSCULOSKELETAL: Extremities without clubbing, cyanosis, or edema. NEURO: Alert & Oriented x4 to person, place, time, situation. Moves all ext x4 A/P Problem List: (1) Right rib fracture ICD Code: S22.31XA - Fracture of one rib, right side, initial encounter for closed fracture Status: Acute Plan: Continue with pulmonary toilet Anti-inflammatory medicines Continue follow clinically (2) COPD with acute exacerbation ICD Code: J44.1 - Chronic obstructive pulmonary disease with (acute) exacerbation Status: Acute Plan: Continue bronchodilators by nebulizer IV steroids to taper Continue with Rocephin empirically (3) Hypertension ICD Code: I10 - Essential (primary) hypertension Status: Chronic Plan: Currently controlled on home meds (4) Bacteremia ICD Code: R78.81 - Bacteremia Plan: Now with evidence of bacteremia, follow-up echocardiogram, repeat blood cultures pending Continue with IV vancomycin and Rocephin If no clearance will consult ID Previous mitral valve repair, follows up with Dr. Roldan cardiology Discharge Planning Pending clearance of bacteremia and patient with valve repair Problem Qualifiers (1) Right rib fracture: Qualified Codes: S22.41XA - Multiple fractures of ribs, right side, initial encounter for closed fracture Rachel Nunes MD November 09, 2017 12:23
[2017-11-09] MEDS: VANCOMYCIN INJ 1,500 MG in SODIUM CHLORID 0.9% 500 ML INJ 500 ML IV SCH (13:16)
[2017-11-09] MEDS: WARFARIN SOD 4 MG TAB PO SCH (16:08)
[2017-11-09] MEDS: TAMSULOSIN HCL 0.4 MG CAP PO SCH (21:08)
[2017-11-09] MEDS: ATORVASTATIN 40 MG TAB PO SCH (21:08)
[2017-11-10] VITALS (7 sets, daily range): BP systolic 117–138; BP diastolic 61–76; PULSE 82–95; RESP 16–20; TEMP 97.1–98.7; O2SAT 92–95
[2017-11-10] MEDS: KETOROLAC TROMETHAMINE 30 MG/ML (IVP) VIAL IV PUSH SCH ×2 (00:20→05:38)
[2017-11-10] MEDS: methylPREDNISolone SOD SUCC 125 MG/2 ML VIAL IV PUSH SCH ×3 (00:21→20:32)
[2017-11-10] MEDS: VANCOMYCIN INJ 1,500 MG in SODIUM CHLORID 0.9% 500 ML INJ 500 ML IV SCH (05:37)
[2017-11-10] MEDS: RESP: ALBUTEROL 2.5 MG/IPRATROPIUM 0.5 MG NEB (SCH) INH ×3 (07:41→19:33)
[2017-11-10] MEDS: hydrALAZINE HCL 25 MG TAB PO SCH ×3 (08:51→17:13)
[2017-11-10] MEDS: SODIUM CHLORIDE 0.9% FLUSH 10 ML FLUSH IV FLUSH SCH ×2 (08:51→20:33)
[2017-11-10] MEDS: LISINOPRIL 20 MG TAB PO SCH (08:51)
[2017-11-10] MEDS: TIOTROPIUM BROMIDE 18 MCG INH INH SCH (08:51)
[2017-11-10] MEDS: cefTRIAXone INJ 1,000 MG in SODIUM CHLORIDE 0.9% INJ 100 ML IV SCH (10:09)
--- NOTE | 2017-11-10 10:32 | ECHRPT ---
Indication: SEPSIS ENDOCARDITIS CONCLUSIONS Normal left ventricular size. Wall thickness is normal. The left ventricular systolic function is normal with an estimated ejection fraction in the range of 55-60%. The right ventricle is mildly dilated. The right atrial size is moderately dilated. Mitral valve annuloplasty ring is present though not well visualized. There is moderate to severe tricuspid valve regurgitation. There is estimated [id number] pulmonary hypertension present (range 60 mmHg). MV not well visualized; if significant concern for endocarditis, recommend ASHWINI. BP: / HR: Rhythm: MEASUREMENTS (Male / Female) Normal Values Technical Quality: 2D ECHO LV Diastolic Diameter PLAX 4.7 cm 4.2 - 5.9 / 3.9 - 5.3 cm LV Systolic Diameter PLAX 3.4 cm IVS Diastolic Thickness 1.1 cm 0.6 - 1.0 / 0.6 - 0.9 cm LVPW Diastolic Thickness 0.7 cm 0.6 - 1.0 / 0.6 - 0.9 cm LV Relative Wall Thickness 0.4 RV Internal Dim ED PLAX 2.9 cm M-MODE Aortic Root Diameter MM 3.1 cm AV Cusp Separation MM 1.7 cm DOPPLER MV Peak Velocity 142.0 cm/s MV Peak Gradient 8.1 mmHg MV Mean Velocity 68.7 cm/s MV Mean Gradient 2.0 mmHg MV Area PHT 2.1 cm Mitral E Point Velocity 143.0 cm/s Mitral A Point Velocity 53.5 cm/s Mitral E to A Ratio 2.7 TR Peak Velocity 353.0 cm/s TR Peak Gradient 49.8 mmHg Right Atrial Pressure 10.0 mmHg Pulmonary Artery Systolic Pressu 59.8 mmHg Right Ventricular Systolic Press 59.8 mmHg FINDINGS LEFT VENTRICLE Normal left ventricular size. Wall thickness is normal. The left ventricular systolic function is normal with an estimated ejection fraction in the range of 55-60%. RIGHT VENTRICLE The right ventricle is mildly dilated. LEFT ATRIUM The left atrial size is normal. RIGHT ATRIUM The right atrial size is moderately dilated. ATRIAL SEPTUM Normal atrial septal thickness without atrial level shunting by limited color doppler interrogation. AORTA The aortic root and proximal ascending aorta are normal in size on limited imaging. MITRAL VALVE Mitral valve annuloplasty ring is present. Not well visualized. AORTIC VALVE Trileaflet aortic valve. Aortic valve sclerosis is present. TRICUSPID VALVE There is moderate to severe tricuspid valve regurgitation. There is estimated [id number] pulmonary hypertension present (range 60 mmHg). PULMONARY VALVE No pulmonary valve regurgitation or stenosis. VESSELS The inferior vena cava is normal in size. PERICARDIUM No pericardial effusion. Bryant Juarez MD (Electronically Signed) Final Date:10 Nov 2017 10:31
--- NOTE | 2017-11-10 12:20 | HHI.PR ---
Subjective Remarks The patient was sitting in a chair. He said he choked on a carrot. He says he normally does not have difficulty swallowing food. He wanted to leave the hospital soon. He said he is not on home oxygen. He said he is breathing better. Discussed with nursing. Objective Vitals Vital Signs Date Time Temp Pulse Resp B/P (MAP) Pulse Ox O2 Delivery O2 Flow Rate FiO2 11/10/17 11:50 97.9 86 20 117/63 (81) 94 11/10/17 07:43 95 Nasal Cannula 2.00 11/10/17 07:30 97.8 91 20 128/76 (93) 94 11/10/17 00:00 97.6 82 16 138/70 (92) 92 11/09/17 20:00 97.2 85 16 124/59 (80) 95 11/09/17 19:44 94 Nasal Cannula 2.00 11/09/17 16:00 97.7 84 18 122/64 (83) 93 I/O 11/09/17 11/09/17 11/09/17 11/10/17 11/10/17 11/10/17 07:00 15:00 23:00 07:00 15:00 23:00 Intake Total 200 ml 1020 ml 540 ml Output Total 300 ml 900 ml 150 ml Balance -100 ml 120 ml 390 ml Intake Oral 200 ml 1020 ml 540 ml Output Urine Total 300 ml 900 ml 150 ml Stool Total 0 ml # Voids 4 # Bowel Movements 1 1 Result Diagram: 11/08/17 0525 11/08/17 0525 Imaging Last Impressions Head CT 11/07/172046 Signed Impressions: Service Date/Time: Tuesday, November 07, 2017 21:52 - CONCLUSION: 1. Minimal nonspecific white matter changes. 2. No acute intracranial abnormality. Jose Rosado MD Chest X-Ray 11/07/172046 Signed Impressions: Service Date/Time: Tuesday, November 07, 2017 20:51 - CONCLUSION: 1. COPD. 2. Bibasilar densities, likely scarring. 3. Status post CABG. Jose Rosado MD Chest CT 11/07/172046 Signed Impressions: Service Date/Time: Tuesday, November 07, 2017 21:57 - CONCLUSION: 1. Right eighth and ninth rib fractures. No pneumothorax 2. Bibasilar densities likely atelectasis. 3. Severe emphysema. Jose Rosado MD Abdomen/Pelvis CT 11/07/172046 Signed Impressions: Service Date/Time: Tuesday, November 07, 2017 21:57 - CONCLUSION: 1. Diverticulosis without diverticulitis. 2. Bilateral renal cysts. 3. Left adrenal nodule, likely benign. Jose Rosado MD Objective Remarks GENERAL: This is a well-nourished, well-developed patient, coughing. HEENT: NC, AT. CARDIOVASCULAR: Regular rate and rhythm without murmurs, gallops, or rubs. RESPIRATORY: Decreased breath sounds. No wheezes, rales, or rhonchi. GASTROINTESTINAL: Abdomen soft, non-tender, nondistended. Normal active bowel sounds MUSCULOSKELETAL: Extremities without clubbing, cyanosis, or edema. NEURO: Alert & Oriented x4 to person, place, time, situation. Moves all ext x4. PSYCH: Calm. Medications and IVs Current Medications Medications (Trade) Dose Ordered Sig/Rere Route Start Time Stop Time Status Last Admin (NS Flush) 2 ml BID IV FLUSH 11/08/17 09:00 11/09/17 21:09 (NS Flush) 2 ml UNSCH PRN IV FLUSH 11/07/17 23:15 (Albuterol Neb) 2.5 mg Q2HR NEB PRN INH 11/07/17 23:15 (SoluMEDROL INJ) 60 mg Q6H IV PUSH 11/08/17 00:00 11/10/17 05:37 (Lipitor) 40 mg HS PO 11/08/17 21:00 11/09/17 21:08 (Apresoline) 25 mg TID PO 11/08/17 09:00 11/10/17 08:51 (Flomax) 0.4 mg HS PO 11/08/17 21:00 11/09/17 21:08 (Spiriva Inh) 18 mcg DAILY INH 11/08/17 09:00 11/10/17 08:51 (Coumadin) 4 mg DAILY@1600 PO 11/08/17 16:00 11/09/17 16:08 (Prinivil) 40 mg DAILY PO 11/08/17 09:00 11/10/17 08:51 (Duoneb Neb) 1 ampule Q6HR WHILE AWAKE NEB INH 11/08/17 14:00 11/10/17 07:41 (Morphine Inj) 1 mg Q3H PRN IV 11/08/17 13:15 Ceftriaxone Sodium 1000 mg/ Sodium Chloride 100 ml @ 200 mls/hr Q24H IV 11/09/17 10:00 11/10/17 10:09 Pharmacy Profile Note 0 ml @ 0 mls/hr UNSCH OTHER 11/09/17 10:00 Vancomycin HCl 1500 mg/Sodium Chloride 515 ml @ 250 mls/hr Q18H IV 11/09/17 12:00 11/10/17 05:37 [place] [place] Info[place] SPECIFIC LAB TO BE DRAWN:VANCOMY... ONCE ONCE .XX 11/11/17 17:45 11/11/17 17:46 Pharmacy Profile Note 0 ml @ 0 mls/hr UNSCH OTHER 11/10/17 12:15 A/P Problem List: (1) Right rib fracture ICD Code: S22.31XA - Fracture of one rib, right side, initial encounter for closed fracture Status: Acute (2) COPD with acute exacerbation ICD Code: J44.1 - Chronic obstructive pulmonary disease with (acute) exacerbation Status: Acute (3) Hypertension ICD Code: I10 - Essential (primary) hypertension Status: Chronic (4) Bacteremia ICD Code: R78.81 - Bacteremia Assessment and Plan Bacteremia Coag neg staph aureus growing in blood culture. Echo without obvious vegetation , although MV not well visualized. Mod-severe TR. Has a history of mitral valve repair. - Continue with IV vancomycin and Rocephin. - consult ID. Right rib fracture Noted on imaging. - Continue with pulmonary toilet. - Anti-inflammatory medicines. - rehab efforts. COPD with acute exacerbation Still having shortness of breath. - Continue bronchodilators by nebulizer. - IV steroids. - Continue with Rocephin empirically. - swallow eval. - walk test prior to discharge. Hypertension Well controlled at this time. - continue home meds. Hyperglycemia S/t steroids. - insulin sliding scale. - wean steroids. PPx: Coumadin Discharge Planning Await ID eval Problem Qualifiers (1) Right rib fracture: Qualified Codes: S22.41XA - Multiple fractures of ribs, right side, initial encounter for closed fracture Phil Angeles DO November 10, 2017 12:20
[2017-11-10 13:51] LABS: INTERNATIONAL NORMALIZED RATIO 3.2 RATIO; PROTHROMBIN TIME - PATIENT 31.8 SEC (9.8-11.6)
[2017-11-10] MEDS: WARFARIN SOD 4 MG TAB PO SCH (15:52)
[2017-11-10] MEDS ORDERED: WARFARIN SOD 1 MG TAB PO ONE (16:00)
[2017-11-10] MEDS: INSULIN ASPART SUPPLEMENTAL SCALE SQ SCH ×2 (17:13→20:33)
[2017-11-10] MEDS: TAMSULOSIN HCL 0.4 MG CAP PO SCH (20:32)
[2017-11-10] MEDS: ATORVASTATIN 40 MG TAB PO SCH (20:32)
[2017-11-10] MEDS ORDERED: ACETAMINOPHEN 325 MG TAB PO PRN (21:00)
[2017-11-11] VITALS: BP 113/82; PULSE 76; RESP 20; TEMP 96.9; O2SAT 95
[2017-11-11] MEDS: VANCOMYCIN INJ 1,500 MG in SODIUM CHLORID 0.9% 500 ML INJ 500 ML IV SCH (00:06)
[2017-11-11] MEDS: methylPREDNISolone SOD SUCC 125 MG/2 ML VIAL IV PUSH SCH ×2 (03:52→12:08)
[2017-11-11] MEDS: RESP: ALBUTEROL 2.5 MG/IPRATROPIUM 0.5 MG NEB (SCH) INH ×2 (07:38→13:52)
[2017-11-11 07:42] VITALS: O2SAT 94
[2017-11-11 07:50] VITALS: BP 128/91; PULSE 89; RESP 20; TEMP 97.8; O2SAT 93
[2017-11-11] MEDS: INSULIN ASPART SUPPLEMENTAL SCALE SQ SCH ×2 (08:00→12:00)
[2017-11-11] MEDS: hydrALAZINE HCL 25 MG TAB PO SCH ×2 (08:20→13:47)
[2017-11-11] MEDS: SODIUM CHLORIDE 0.9% FLUSH 10 ML FLUSH IV FLUSH SCH (08:26)
[2017-11-11] MEDS: LISINOPRIL 20 MG TAB PO SCH (08:26)
[2017-11-11 08:29] LABS: HEMOGLOBIN 12.8 GM/DL (13.0-17.0); MEAN CELL VOLUME 79.5 FL (80.0-100.0); MEAN CORPUSCULAR HEMOGLOBIN 26.1 PG (27.0-34.0); MEAN CORPUSCULAR HGB CONC 32.9 % (32.0-36.0); MEAN PLATELET VOLUME 11.1 FL (7.0-11.0); PLATELET COUNT 193 TH/MM3 (150-450); RED BLOOD COUNT 4.91 MIL/MM3 (4.50-5.90); RED CELL DISTRIBUTION WIDTH 14.1 % (11.6-17.2)
[2017-11-11] MEDS ORDERED: guaiFENesin E.R. 600 MG TAB PO SCH (09:15)
--- NOTE | 2017-11-11 09:59 | PD.CONS ---
History of Present Illness Service ID CONSULT DR RO Consult Requested By DR HAYES Reason for Consult COPD EXACERBATION Primary Care Physician Tyler Carter M.D. Diagnoses: (1) Bacteremia (2) Bullous emphysema (3) COPD with acute exacerbation History of Present Illness 82 YR MALE ADMITTED WITH SHORTNESS OF BREATH. 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 HE STARTED TO HAVE INCREASED PAIN AND TROUBLE BREATHING SO HE FINALLY CAME IN TO THE ER HE HAS COPD BUT COUGH HAS BEEN WORSE THAN USUAL AND NON PRODUCTIVE. NO FEVER OR CHILLS. HE IS AND HAS A SMALL DOG AT HOME. NO RECENT TRAVEL BC ON ADMISSION + [employer] ALL 4 BOTTLES. REPEAT CULTURES NEGATIVE SO FAR. ECHO NEGATIVE FOR VEGETATIONS. HE DOES HAVE A HISTORY OF MV REPAIR. Past Family Social History Allergies: Coded Allergies: propoxyphene (Unverified Allergy, Unknown, HEADACHE,VOMITING, 02/21/17) Past Medical History Past Medical History Coronary artery disease History of gout Hypertension COPD Benign prostatic hyperplasia Past Surgical History Past Surgical History Reviewed in the EMR to include double hernia in 1992, mitral valve repair and cardiac bypass and graft Reported Medications Reviewed in the EMR, nothing new Reported Medications Allergies: Coded Allergies: propoxyphene (Unverified Allergy, Unknown, HEADACHE,VOMITING, 02/21/17) Active Ordered Medications Family History Reviewed in the EMR Family History Coronary disease and hypertension Social History Social History No current tobacco, liquor nightly without any history of dependence per patient and spouse Physical Exam Vital Signs Vital Signs Date Time Temp Pulse Resp B/P (MAP) Pulse Ox O2 Delivery O2 Flow Rate FiO2 11/11/17 07:42 94 Nasal Cannula 2.00 11/11/17 00:00 96.9 76 20 113/82 (92) 95 11/10/17 20:00 98.7 95 20 127/63 (84) 94 11/10/17 19:33 94 Nasal Cannula 2.00 11/10/17 15:30 97.1 83 20 124/61 (82) 95 11/10/17 11:50 97.9 86 20 117/63 (81) 94 Physical Exam GENERAL: This is a well-nourished, well-developed patient, in no apparent distress. SKIN: No rashes, ecchymoses or lesions. Cool and dry. HEAD: Atraumatic. Normocephalic. No temporal or scalp tenderness. EYES: Pupils equal round and reactive. Extraocular motions intact. No scleral icterus. No injection or drainage. ENT: Nose without bleeding, purulent drainage or septal hematoma. Throat without erythema, tonsillar hypertrophy or exudate. Uvula midline. Airway patent. NECK: Trachea midline. No JVD or lymphadenopathy. Supple, nontender, no meningeal signs. CARDIOVASCULAR: Regular rate and rhythm without murmurs, gallops, or rubs. RESPIRATORY: DIMINSHED auscultation. Breath sounds equal bilaterally. RLL + wheezes, rll rales, NO rhonchi. GASTROINTESTINAL: Abdomen soft, non-tender, nondistended. No hepato-splenomegaly , or palpable masses. No guarding. MUSCULOSKELETAL: Extremities without clubbing, cyanosis, or edema. No joint tenderness, effusion, or edema noted. No calf tenderness. Negative Homans sign bilaterally. NEUROLOGICAL: Awake and alert. Cranial nerves II through XII intact. Motor and sensory grossly within normal limits. Five out of 5 muscle strength in all muscle groups. Normal speech. Laboratory Laboratory Tests Test 11/10/17 12:50 11/11/17 07:08 Prothrombin Time 31.8 Prothromb Time International Ratio 3.2 White Blood Count 13.0 Red Blood Count 4.91 Hemoglobin 12.8 Hematocrit 39.0 Mean Corpuscular Volume 79.5 Mean Corpuscular Hemoglobin 26.1 Mean Corpuscular Hemoglobin Concent 32.9 Red Cell Distribution Width 14.1 Platelet Count 193 Mean Platelet Volume 11.1 Date/Time Source Procedure Growth Status 11/09/17 14:30 Blood Peripheral Aerobic Blood Culture - Preliminary NO GROWTH IN 1 DAY Resulted 11/09/17 14:30 Blood Peripheral Anaerobic Blood Culture - Preliminary NO GROWTH IN 1 DAY Resulted 11/07/17 21:05 Nasal Washing Influenza Types A,B Antigen (TEMI) - Final NEGATIVE FOR FLU A AND B ANTIGEN.... Complete Result Diagram: 11/11/17 0708 11/08/17 0525 Assessment and Plan Problem List: (1) COPD with acute exacerbation ICD Codes: J44.1 - Chronic obstructive pulmonary disease with (acute) exacerbation Status: Acute Plan: CONTNUE ROCEPHIN ADD DOXYXYCLINE CAN DO DOXYCYLINE ON DC WILL FU (2) Right rib fracture ICD Codes: S22.31XA - Fracture of one rib, right side, initial encounter for closed fracture Status: Acute (3) Bacteremia ICD Codes: R78.81 - Bacteremia Plan: LIKELY CONTAMINANT ON VANCOMYCIN ECHO NEGATIVE REPEAT BC NEGATIVE AT 24H SHOULD BE OK WITH PO DOXYCYCLINE X 7DAYS ON DC WOULD HAVE HIM FU IN 1-2 WEEKS POST DC (4) H/O mitral valve replacement ICD Codes: Z95.2 - Presence of prosthetic heart valve Status: Acute Problem Qualifiers (1) Right rib fracture: Qualified Codes: S22.41XA - Multiple fractures of ribs, right side, initial encounter for closed fracture Cherri Lee November 11, 2017 09:59
[2017-11-11] MEDS: cefTRIAXone INJ 1,000 MG in SODIUM CHLORIDE 0.9% INJ 100 ML IV SCH (10:03)
[2017-11-11 11:50] VITALS: BP 124/73; PULSE 81; RESP 20; TEMP 97.7; O2SAT 94
[2017-11-11] MEDS ORDERED: GETGO ROLLING W1 MI1 (13:02)
[2017-11-11] MEDS ORDERED: DOXY100C PO (13:05)
--- NOTE | 2017-11-11 13:06 | HHI.DCPOC ---
Discharge Care Plan Diagnosis: (1) Right rib fracture (2) COPD with acute exacerbation (3) H/O mitral valve replacement (4) Bacteremia Goals to Promote Your Health * To prevent worsening of your condition and complications * To maintain your health at the optimal level Directions to Meet Your Goals Take your medications as prescribed Follow your dietary instruction Follow activity as directed Keep your appointments as scheduled Take your immunizations and boosters as scheduled If your symptoms worsen call your PCP, if no PCP go to Urgent Care Center or Emergency Room Smoking is Dangerous to Your Health. Avoid second hand smoke Call the 24-hour hour crisis hotline for domestic abuse at Phil Angeles DO November 11, 2017 13:05
--- NOTE | 2017-11-11 13:12 | HHI.DS ---
Discharge Summary Admission Date November 09, 2017 at 10:22 Discharge Date: November 11, 2017 Admitting Diagnosis Acute exacerbation COPD. Fractured ribs. (1) Right rib fracture ICD Code: S22.31XA - Fracture of one rib, right side, initial encounter for closed fracture Diagnosis: Principal Status: Acute (2) COPD with acute exacerbation ICD Code: J44.1 - Chronic obstructive pulmonary disease with (acute) exacerbation Diagnosis: Principal Status: Acute (3) Hypertension ICD Code: I10 - Essential (primary) hypertension Status: Chronic (4) Bacteremia ICD Code: R78.81 - Bacteremia Diagnosis: Principal Procedures None Brief History - From Admission This patient is an 82-year-old gentleman with a history of COPD who tripped and fell holding a heavy object and sustained some rib fractures with contusion and laceration of the right hand. Patient says he was increasingly short of breath over the last 2 days following the fall and his finally brought him in because he really was having a lot of trouble breathing. He notes no fevers or chills. He does have COPD and this has been managed with Spiriva and albuterol handheld inhaler. Patient's chest x-ray and CT were done and did show acute right ninth eighth eighth and ninth rib fractures. Patient been admitted to the hospital also because of elevated lactic acid and hypoxemia requiring O2 therapy. Patient has felt better with Toradol and use of incentive spirometry is explained at the bedside. Patient will continue to be admitted to the hospital for further improvement. CBC/BMP: 11/11/17 0708 11/08/17 0525 Significant Findings Laboratory Tests Test 11/08/17 14:29 11/09/17 05:47 11/09/17 12:30 11/10/17 12:50 Lactic Acid Level 2.4 mmol/L (0.4-2.0) 2.7 mmol/L (0.4-2.0) Prothrombin Time 21.3 SEC (9.8-11.6) 31.8 SEC (9.8-11.6) Test 11/11/17 07:08 White Blood Count 13.0 TH/MM3 (4.0-11.0) Hemoglobin 12.8 GM/DL (13.0-17.0) Mean Corpuscular Volume 79.5 FL (80.0-100.0) Mean Corpuscular Hemoglobin 26.1 PG (27.0-34.0) Mean Platelet Volume 11.1 FL (7.0-11.0) Imaging Last Impressions Head CT 11/07/172046 Signed Impressions: Service Date/Time: Tuesday, November 07, 2017 21:52 - CONCLUSION: 1. Minimal nonspecific white matter changes. 2. No acute intracranial abnormality. Jose Rosado MD Chest X-Ray 11/07/172046 Signed Impressions: Service Date/Time: Tuesday, November 07, 2017 20:51 - CONCLUSION: 1. COPD. 2. Bibasilar densities, likely scarring. 3. Status post CABG. Jose Rosado MD Chest CT 11/07/172046 Signed Impressions: Service Date/Time: Tuesday, November 07, 2017 21:57 - CONCLUSION: 1. Right eighth and ninth rib fractures. No pneumothorax 2. Bibasilar densities likely atelectasis. 3. Severe emphysema. Jose Rosado MD Abdomen/Pelvis CT 11/07/172046 Signed Impressions: Service Date/Time: Tuesday, November 07, 2017 21:57 - CONCLUSION: 1. Diverticulosis without diverticulitis. 2. Bilateral renal cysts. 3. Left adrenal nodule, likely benign. Jose Rosado MD PE at Discharge GENERAL: This is a well-nourished, well-developed patient, coughing. HEENT: NC, AT. CARDIOVASCULAR: Regular rate and rhythm without murmurs, gallops, or rubs. RESPIRATORY: Decreased breath sounds. No wheezes, rales, or rhonchi. GASTROINTESTINAL: Abdomen soft, non-tender, nondistended. Normal active bowel sounds MUSCULOSKELETAL: Extremities without clubbing, cyanosis, or edema. NEURO: Alert & Oriented x4 to person, place, time, situation. Moves all ext x4. PSYCH: Calm. Pt update on day of discharge The patient was feeling well and wanted to go home. He did not want any home health care. He did not want to be tested for home oxygen. His family was at the bedside. Discussed with nursing. Hospital Course Bacteremia Coag neg staph aureus growing in blood cultures. Echo without obvious vegetation , although MV not well visualized; Mod-severe TR. He was started on IV vancomycin and Rocephin. We consulted ID, who felt that the blood cultures were likely contaminants. The pt will follow up with ID and will complete 7 days of doxycycline. Right rib fracture Noted on imaging. He was placed on pulmonary toilet. He received pain medications and worked with physical therapy. He will continue with pain control as needed. COPD with acute exacerbation He was continued on bronchodilators and started on IV steroids. He received oxygen. He was placed on antibiotics. He felt to be at baseline and did not want to perform the home oxygen walk test. He will be referred to pulmonology upon discharge. He will continue his home inhaler regimen. Steroids were discontinued secondary to patient preference. Pt Condition on Discharge: Stable Discharge Disposition: Discharge Home Discharge Time: > 30 minutes Discharge Instructions DIET: Follow Instructions for: Heart Healthy Diet Activities you can perform: Weight Bearing as Tra Follow up Referrals: Infectious Disease - [address] Livingston PCP Follow-up - 1 Week Pulmonology - 1 Week with Link Riggins MD New Medications: Doxycycline Hyclate (Doxycycline Hyclate) 100 Mg Cap 100 MG PO BID for Infection for 7 Days, #14 CAP 0 Refills Walker Rolling/GetGo (Walker Rolling/GetGo) 1 Mis Mis EA .XX DIRECTED, #1 Continued Medications: Albuterol 6.7 GM Inh (Proventil Hfa 6.7 GM Inh) 90 Mcg/Act Aer 2 PUFF INH Q4-6H PRN for SHORTNESS OF BREATH, #1 INHALER 0 Refills Allopurinol (Allopurinol) 100 Mg Tab 100 MG PO DAILY for Gout, #30 TAB 0 Refills Atorvastatin (Atorvastatin) 40 Mg Tab 40 MG PO HS for Cholesterol Management, #30 TAB 0 Refills Cholecalciferol (Vitamin D3) (D3-2000) 2,000 Unit Capsule Colchicine (Colchicine) 0.6 Mg Cap 0.6 MG PO BID for Gout, CAP 0 Refills Folic Acid (Folic Acid) 0.4 Mg Tab 400 MCG PO DAILY for Nutritional Supplement, TAB 0 Refills Eixenccpahz-Rfqrcbettqq-Oehrqd (Move Free Joint Health Ad) 750 Mg-100 Mg-1.65 Mg -108 Mg Tab Hydralazine HCl (Hydralazine HCl) 25 Mg Tablet 25 MG PO TID for Blood Pressure Management, #90 TAB 0 Refills Lisinopril (Lisinopril) 40 Mg Tab 40 MG PO DAILY for Blood Pressure Management, #30 TAB 0 Refills Tamsulosin (Tamsulosin) 0.4 Mg Cap 0.4 MG HS for Manage Prostate Problems, #30 CAP 0 Refills Tiotropium Inh (Spiriva Handihaler) 18 Mcg Cap 18 MCG INH DAILY for COPD, #30 CAP 0 Refills 1 capsule = 18 mcg Turmeric (Curcuma Longa) (Turmeric) 450 Mg-50 Mg Cap Vitamin B Complex Vit C No.4 (Super B Complex) 150 Mg Tablet Warfarin (Warfarin) 4 Mg Tab 4 MG PO DAILY for Blood Clot Prevention, #30 TAB 0 Refills Phil Angeles DO November 11, 2017 13:12
[2017-11-11 14:45] LABS: INTERNATIONAL NORMALIZED RATIO 4.9 RATIO; PROTHROMBIN TIME - PATIENT 49.1 SEC (9.8-11.6)
[2017-11-11] MEDS ORDERED: VANCOMYCIN TROUGH ONE (17:45)
== END 2017-11-11 15:26 | disposition home or self-care (01) | DRG 190 ==
LOC: PHED 20:41 → PHEDA 23:16 → PH3B 11-08 00:46 → OBSVTOIN 11-09 10:22
PROVIDERS: ADMIT Hospitalist; ATTEND Hospitalist
DX: J44.1 Chronic obstructive pulmonary disease with (acute) exacerbation (principal); J18.9 Pneumonia, unspecified organism; I48.91 Unspecified atrial fibrillation; S22.41XA Multiple fractures of ribs, right side, initial encounter for closed fracture; R78.81 Bacteremia; Z95.1 Presence of aortocoronary bypass graft; S61.411A Laceration without foreign body of right hand, initial encounter; J44.0 Chronic obstructive pulmonary disease with (acute) lower respiratory infection; I25.10 Atherosclerotic heart disease of native coronary artery without angina pectoris; I10 Essential (primary) hypertension; E78.00 Pure hypercholesterolemia, unspecified; H91.90 Unspecified hearing loss, unspecified ear; N40.0 Benign prostatic hyperplasia without lower urinary tract symptoms; M10.9 Gout, unspecified; R73.9 Hyperglycemia, unspecified; R09.02 Hypoxemia; W01.0XXA Fall on same level from slipping, tripping and stumbling without subsequent striking against object, initial encounter; Z85.828 Personal history of other malignant neoplasm of skin; Z95.2 Presence of prosthetic heart valve; Z79.01 Long term (current) use of anticoagulants
CPT/HCPCS: 70450; 71045; 71260; 74177; 80048; 80053; 81001; 82550; 82552; 82948; 83605; 83880; 84484; 85025; 85027; 85610; 85730; 86403; 87040; 87077; 87186; 87205; 87804; 93005; 93306; 94150; 94640; 94664; G8987-GP; G8988-GP; J0456; J0696; J1885; J2270; J2405; J2930; J3370; J7030; J7040; J7050; J7613; Q9967